=== PATIENT | male | born 1990 | race Caucasian/White ===

== ENCOUNTER 2024-07-30 05:11 | Emergency (ER) | payer BC ==
[~2024-07-30] VITALS: Ht 177.8 cm; Wt 79.4 kg
[2024-07-30 06:03] LABS: BASOPHILS % (AUTO) 0.6 % (0.0-2.0); EOSINOPHILS # (AUTO) 0.1 K/uL (0.0-0.7); EOSINOPHILS % (AUTO) 1.1 % (0.0-7.0); HEMOGLOBIN 16.1 g/dL (12.5-16.3); LYMPHOCYTES # (AUTO) 1.8 K/uL (0.8-4.8); LYMPHOCYTES % (AUTO) 26.3 % (20.5-51.5); MEAN CORPUSCULAR HEMOGLOBIN 27.6 uug (23.8-33.4); MEAN CORPUSCULAR HGB CONC 34 g/dL (32.5-36.3); MEAN CORPUSCULAR VOLUME 82.4 fL (73.0-96.2); MONOCYTES # (AUTO) 0.6 K/uL (0.1-1.30); MONOCYTES % (AUTO) 8.4 % (0.0-11.0); NEUTROPHILS # (AUTO) 4.3 K/uL (1.8-8.9); NEUTROPHILS % (AUTO) 63.6 % (38.5-71.5); PLATELET COUNT (AUTO) 249 K/uL (152-348); RED BLOOD CELL COUNT(AUTO) 5.83 MIL/uL (4.06-5.63); RED CELL DISTRIBUTION WIDTH 15.1 % (12.1-16.2); WHITE BLOOD COUNT (AUTO) 6.8 K/uL (3.6-10.2)
[2024-07-30 06:06] LABS: DIFFERENTIAL COMMENT 1
[2024-07-30 06:18] LABS: CALCIUM 9.6 mg/dL (8.5-10.1)
[2024-07-30 06:31] LABS: ALBUMIN 4.1 g/dL (3.4-5.0); BILIRUBIN,TOTAL 0.4 mg/dL (0.2-1.0); TOTAL PROTEIN, SERUM 7.3 g/dL (6.4-8.2)
[2024-07-30] MEDS ORDERED: IBUPROFEN 600 MG TABLET ONE ×2 (07:45→07:46)
[2024-07-30] MEDS ORDERED: ACETAMINOPHEN 500 MG TABLET ONE (07:45)
[2024-07-30] MEDS: IBUPROFEN 600 MG TABLET PO ONE (07:49)
[2024-07-30] MEDS: ACETAMINOPHEN 500 MG TABLET PO ONE (07:52)
[2024-07-30] MEDS ORDERED: KETOROLAC TROMETHAMINE 30 MG INJ ONE (07:59)
[2024-07-30] MEDS ORDERED: HYDR-3972 PO (08:03)
[2024-07-30] MEDS ORDERED: NAPR500T6 PO (08:03)
[2024-07-30] MEDS: KETOROLAC TROMETHAMINE 30 MG INJ IM ONE (08:08)
[2024-07-30 08:37] VITALS: BP 123/73; TEMP 98; O2SAT 97
== END 2024-07-30 08:38 | disposition home or self-care (01) ==
LOC: ER 05:23
DX: M54.12 Radiculopathy, cervical region (principal); G62.9 Polyneuropathy, unspecified; R51.9 Headache, unspecified; F17.200 Nicotine dependence, unspecified, uncomplicated; Z79.899 Other long term (current) drug therapy; Z60.2 Problems related to living alone
CPT/HCPCS: 99285; 70450; 80053; 83880; 85025; 85651; 84484; 36415; 72125; 93005; 96372; J1885; A4606; A4663; A9150